=== PATIENT | female | born 1935 | race Hispanic/Latino ===

== ENCOUNTER 2020-12-13 22:58 | Observation (INO) | payer MEDICARE, MEDICAID ==
[~2020-12-13] VITALS: Ht 152.4 cm; Wt 72.0 kg
--- NOTE | 2020-12-13 21:45 | NUR ---
TELEPHONE REPORT RECEIVED FROM Karen FUCHS RN AT [facility]. PT [place]AK[place]. ETA 30 MINUTES. ICU 6 PREPARED TO RECEIVE PT.
[2020-12-13 22:15] VITALS: BP 190/84
--- NOTE | 2020-12-13 22:15 | NUR ---
PT ARRIVES VIA STRETCHER ACCOMPANIED BY [facility]. REPORT RECEIVED AT BEDSIDE BY MEDICAL TRANSPORT PERSONEL. PT AMBULATORY FROM STRETCHER TO BED. MADE COMFORTABLE IN BED, ATTATCHED TO MONITOR, AND ORIENTED TO ROOM AND UNIT.
--- NOTE | 2020-12-13 22:30 | NUR ---
ADMISSION AND PHYSICAL ASSESMENT COMPLETE. PLAN OF CARE REVIEWED, PT VERBALIZES UNDERSTANDING. CALL BROOKE WITHIN REACH, AGREES TO CALL PRN. BED LOCKED IN LOW POSITION WITH BEDRAILS UP X2.
[2020-12-13 23:00] VITALS: BP 163/63
--- NOTE | 2020-12-13 23:05 | NUR ---
ADMISSION ORDERS RECEIVED FROM DR. FAUST.
--- NOTE | 2020-12-13 23:47 | NUR ---
PRN HYDRALAZINE ADMINISTERED FOR NIBP 163/63mmHg. SEE E-MAR.
[2020-12-14] VITALS (12 sets, daily range): BP systolic 107–159; BP diastolic 46–74
--- NOTE | 2020-12-14 | NUR ---
NIBP 135/46mmHg.
--- NOTE | 2020-12-14 01:19 | NUR ---
PT ASSISTED UP TO BSC AND BACK TO BED.
[2020-12-14] MEDS ORDERED: JANUVIA100 MG PO (02:03)
[2020-12-14] MEDS ORDERED: PROTONIX40 M2 PO (02:03)
[2020-12-14] MEDS ORDERED: LOPRESSOR50 M1 PO (02:04)
[2020-12-14] MEDS ORDERED: COZAAR50 MG PO (02:05)
[2020-12-14] MEDS ORDERED: METFORMIN HCL1000 MG PO (02:05)
[2020-12-14] MEDS ORDERED: ISOSORB MONO30 MG PO (02:06)
[2020-12-14] MEDS ORDERED: LEVOTHYROXIN50 MCG PO (02:06)
[2020-12-14] MEDS ORDERED: NEURONTIN100 MG PO (02:07)
[2020-12-14] MEDS ORDERED: JARDIANCE25 MG PO (02:08)
[2020-12-14] MEDS ORDERED: TRULICITY1.5 MG/0.5 SC (02:09)
[2020-12-14] MEDS ORDERED: PLAVIX75 MG PO (02:10)
[2020-12-14] MEDS ORDERED: LIPITOR20 M1 PO (02:11)
--- NOTE | 2020-12-14 02:23 | NUR ---
PT ASSISTED UP TO BSC AND BACK TO BED.
--- NOTE | 2020-12-14 04:00 | NUR ---
PT APPEARS TO BE SLEEPING COMFORTABLY, EYES CLOSED, SNORING, RESPIRATIONS UNLABORED, NO APPARENT DISTRESS. CALL BROOKE REMAINS WITHIN REACH.
--- NOTE | 2020-12-14 05:48 | NUR ---
Caro RIDDLE PROFILING MACHINE SETUP OPERATOR AT BEDSIDE COLLECTING AM LABS.
--- NOTE | 2020-12-14 07:15 | NUR ---
REPORT RECEIVED FROM THAIS GRECO
--- NOTE | 2020-12-14 07:59 | NUR ---
REPORT GIVEN TO THAIS EDWARDS AT MED/SURG
[2020-12-14 08:15] LABS: HEMATOCRIT 39.9 % (37.0-47.0); HEMOGLOBIN 11.7 g/dl (12.0-16.0); IMMATURE GRANULOCYTES 0.4 % (0.0-5.0); MEAN CELL VOLUME 75.3 fL CALC (80.0-100.0); MEAN CORPUSCULAR HGB 22.1 pG CALC (26.0-32.0); MEAN CORPUSCULAR HGB CONC 29.3 g/dL CAL (32.0-36.0); NEUT# 5.74 thou/uL (2.00-7.15); RED BLOOD COUNT 5.3 mill/uL (4.20-5.60); RED CELL DISTRI WIDTH 17.2 % (11.5-15.5)
--- NOTE | 2020-12-14 08:20 | NUR ---
PT RESTING IN RECLINER,A&O X2;PT NOTED TO BE FORGETFUL AT TIMES, FREQUENT RE-ORIENTING REQUIRED;SPOKE WITH PT SON WHO REPORTED FORGETFULNESS IS NORMAL FOR HER; VS OBTAINED AND ASSESSMENT COMPLETED;PT DENIES ANY CURRENT PAIN OR DISCOFORTS,PAIN SCALE AND REPORTING EDUCATED;RESPIRATIONS EVEN AND UNLABORED ON RA,CLEAR LUNG SOUNDS;ABDOMEN SOFT ON PALPATION AND ACTIVE IN ALL 4 QUADRANTS;STRONG PEDAL PULSES;SKIN INTACT;CARDIAC MONITORING IN PLACE:#20G TO RW NOTED TO BE INFILTRATED,SITE REMOVED WITH CATHETER INTACT AND NEW #22G STARTED TO LEFT WRIST ON 1ST ATTEMPT;ACCUCHECK 121,NO COVERAGE NEEDED;PT DENIES ANY ADDIITONAL NEEDS AT THIS TIME AND IS ENCOURAGED TO CALL FOR ASSISTANCE IF NEEDED;FALL PRECAUTIONS IN PLACE WITH BED IN THE LOWEST POSITION AND CALL LIGHT IN REACH;WILL CONTINUE TO MONITOR
--- NOTE | 2020-12-14 08:25 | NUR ---
XRAY AT BEDSIDE
[2020-12-14 08:31] LABS: ALKALINE PHOSPHATASE 76 u/l (38-126); ANION GAP 12 (6-22 (CALC)); BILIRUBIN, TOTAL 0.7 mg/dL (0.0-1.4); BUN 22 mg/dL (8-23); BUN/CREATININE RATIO 32 (12-20 (CALC)); CARBON DIOXIDE 29 mmol/l (22-30); CHLORIDE 100 mmol/l (95-108); CREATININE 0.7 mg/dL (0.5-1.0); GFR > 60 ML/MIN (>=60 (CALC)); GFR FOR AFR.AMER. > 60 ML/MIN (>=60 (CALC)); POTASSIUM 3.8 mmol/l (3.5-5.1); SGOT/AST 35 u/l (9-36); SODIUM 136 mmol/l (137-146); TOTAL PROTEIN 7.5 g/dL (6.3-8.2)
--- NOTE | 2020-12-14 08:45 | NUR ---
PT TRANSFERRED TO MED/SURG ROOM 271 IN STABLE CONDITION VIA WHEELCHAIR ACCOMPANIED BY THIS WRITTER. ALL BELONINGS TRANSPORTED WITH PT;CARE RELINQUISHED TO THAIS EDWARDS AT THIS TIME.
--- NOTE | 2020-12-14 09:33 | NUR ---
PT ARRIVES FROM ICU IN WHEELCHAIR ACCOMPANIED BY [facility]TH[facility] DOVE. PT IS AWAKE, ALERT, ORIENTED X 2. PT PROVIDES UNRELIABLE ANSWERS TO QUESTIONS. NO SHORTNESS OF BREATH, NO COUGH. PT SEEN TO BE IN AFIB FOR SEVERAL SECONDS AFTER ARRIVAL TO MED/SURG, BACK TO SR WITHIN A FEW SECONDS. PT SPEAKS ENGLISH PRIMARILY.
--- NOTE | 2020-12-14 14:13 | NUR ---
PT AMBULATING IN ROOM WITH STEADY GAIT. PT DID REMOVE HER IV, LEFT BLOOD TRAIL IN ROOM. OK FROM RAVINDER TO LEAVE OUT UNTIL AM BLOOD DRAW AND IV LASIX ADMINISTRATION. PT WITH SON IN ROOM NOW.
--- NOTE | 2020-12-14 17:09 | NUR ---
PT REMAINS IN ROOM, AMBULATES FREELY WITH STEADY GAIT. PT PROVIDED ULTRAM FOR PAIN RELIEF FROM CRAMPING LEGS.
--- NOTE | 2020-12-14 22:03 | NUR ---
PHYSICAL ASSESMENT COMPLETE. PT CURRENTLY DENIES PAIN OR DISCOMFORT. SCHEDULED MEDICATIONS AND PRN MEDICATION ADMINISTERED, SEE E-MAR. PT DENIES ANY NEEDS AT THIS TIME. PLAN OF CARE REVIEWED, PT IS [place] SPEAKING BUT UNDERSTANDS SOME FINNISH. VERBALIZES UNDERSTANDING. ITEMS WITHIN REACH, BED LOCKED IN LOW POSITION W/ BEDRAILS UP X2. CALL BROOKE WITHIN REACH, AGREES TO CALL PRN.
--- NOTE | 2020-12-15 | NUR ---
PT LAYING IN BED WITH EYES CLOSED, APPEARS TO BE SLEEPING, APPEARS COMFORTABLE AND IN NO DISTRESS. RESPIRATIONS REGULAR AND UNLABORED. ITEMS REMAIN WITHIN REACH, CALL BROOKE REMAINS WITHIN REACH. BED REMAINS LOCKED AND IN LOW POSITION WITH BEDRAILS UP X2. WILL CONTINUE TO MONITOR.
[2020-12-15 00:18] VITALS: BP 141/64
[2020-12-15 04:00] VITALS: BP 147/68
--- NOTE | 2020-12-15 04:29 | NUR ---
PT UP TO THE CHAIR WITH NO DISTRESS NOTED; DENIES NEEDS/PAIN. CALL LIGHT WITHIN REACH.
[2020-12-15 05:31] LABS: HEMATOCRIT 41.9 % (37.0-47.0); HEMOGLOBIN 12.2 g/dl (12.0-16.0); MEAN CELL VOLUME 76.9 fL CALC (80.0-100.0); MEAN CORPUSCULAR HGB 22.4 pG CALC (26.0-32.0); MEAN CORPUSCULAR HGB CONC 29.1 g/dL CAL (32.0-36.0); RED BLOOD COUNT 5.45 mill/uL (4.20-5.60); RED CELL DISTRI WIDTH 17.6 % (11.5-15.5)
[2020-12-15 05:41] LABS: ANION GAP 13 (6-22 (CALC)); BUN 26 mg/dL (8-23); BUN/CREATININE RATIO 28 (12-20 (CALC)); CARBON DIOXIDE 30 mmol/l (22-30); CHLORIDE 97 mmol/l (95-108); CREATININE 0.9 mg/dL (0.5-1.0); GFR 60 ML/MIN (>=60 (CALC)); GFR FOR AFR.AMER. > 60 ML/MIN (>=60 (CALC)); MAGNESIUM 1.9 mg/dL (1.6-2.3); POTASSIUM 4.2 mmol/l (3.5-5.1); SODIUM 136 mmol/l (137-146)
[2020-12-15 07:30] VITALS: BP 130/58
--- NOTE | 2020-12-15 07:30 | NUR ---
ASSESSMENT IS COMPLETED: NO IV SITE IS FREE FROM REDNESS OR EDEMA. HR IS REG,PULSES ARE STRONG X4, ABD IS SOFT WITH ACTIVE BS. BREATH SOUNDS ARE CLEAR,BILATERALLY. NO C/O SOB. TELE MONITOR IN PLACE
[2020-12-15 11:10] VITALS: BP 120/69
[2020-12-15] MEDS ORDERED: TORSEMIDE5 MG PO (11:30)
--- NOTE | 2020-12-15 12:00 | NUR ---
PT IS SITTING IN THE CHAIR. NO DISTRESS NOTED. NO IV SITE . TELE MONITOR IN PLACE.
--- NOTE | 2020-12-15 14:15 | NUR ---
IV SITE ALREADY TAKEN OUT., TELE MONITOR TAKEN OFF. DISCHARGE INSTRUCTIONS GIVEN AND INTERPRETED IN ENGLISH BY MEGAN PLASCENCIA. PT AND FAMILY VERBALIZED UNDERSTANDING.
--- NOTE | 2020-12-15 14:35 | NUR ---
Discharge instructions given. Patient verbalizes understanding of same. Discharged in stable condition via Wheelchair to Home with family. All belongings sent with pt.
== END 2020-12-15 14:25 | disposition home health service (06) ==
LOC: ICU 22:58 → MS2 22:58 → ICU 12-14 06:32 → MS2 12-14 08:42
PROVIDERS: Nurse Practitioner; ADMIT Internal Medicine; ATTEND Internal Medicine
DX: I11.0 Hypertensive heart disease with heart failure (principal); I50.31 Acute diastolic (congestive) heart failure; I25.119 Atherosclerotic heart disease of native coronary artery with unspecified angina pectoris; E11.40 Type 2 diabetes mellitus with diabetic neuropathy, unspecified; F03.90 Unspecified dementia, unspecified severity, without behavioral disturbance, psychotic disturbance, mood disturbance, and anxiety; I48.91 Unspecified atrial fibrillation; E78.5 Hyperlipidemia, unspecified; E03.9 Hypothyroidism, unspecified; K21.9 Gastro-esophageal reflux disease without esophagitis
CPT/HCPCS: G0378